=== PATIENT | female | born 1940 | race Caucasian/White ===

== ENCOUNTER → 2016-12-04 09:03 | Outpatient (CLI) | payer MEDICARE ==
[2016-12-04 10:17] LABS: ALBUMIN 3.8 g/dL (3.4-5.0); BILIRUBIN - DIRECT 0.28 mg/dL (0.00-0.30); BILIRUBIN - INDIRECT 0.64 mg/dL (0.00-1.00); BILIRUBIN - TOTAL 0.92 mg/dL (0.2-1.3)
[2016-12-05 12:15] LABS: ANA REFLEX - DIRECT Negative (Negative); ANA REFLEX - SCL-70 <0.2 AI (0.0-0.9)
== END | disposition home or self-care (01) ==
LOC: D.RT 10-27 10:00 → D.RAD 10-27 11:00 → D.LAB 10-27 11:30 → D.RT 09:03
PROVIDERS: Internal Medicine Pulmonary Disease
DX: I27.2 Other secondary pulmonary hypertension (principal)

== ENCOUNTER 2017-01-30 06:14 | Outpatient (CLI) | payer MEDICARE ==
[~2017-01-30] VITALS: Ht 154.9 cm; Wt 76.4 kg
--- NOTE | ~2017-01-30 | HEMODYNAMI ---
PATIENT:ANNE-MARIE PETERSEN MEDICAL RECORD: [id number] : 44 LOCATION:[facility] ADMISSION DATE: 01/30/17 Generatedon:01/30/201710:32 Patient name: ANNE-MARIE PETERSEN Patient #: [id number] SSN: DO B: 1940 Date of study: 01/30/2017 Page: Of Hemodynamic Procedure Report Patient Data Patient Demographics Procedure consent was obtained First Name: ANEN-MARIE Gender: Female Last Name: TRINITY : 1940 Patient #: [id number] Age: 76 year(s) Race: Unknown Additional ID: [id number] Contact details [address]: [address] [place] [address] State: [place] City: [place] Zip code: [address] Past Medical History Allergies Allergen Reaction Date Comments Reported Other allergy 01/30/2017 Codeine, Sulfa Admission Admission Data Admission Date: 01/30/2017 Admission Time: 6:14 Admit Source: Other Lab Results Lab Result Date: 01/30/2017 Lab Result Time: 7:00 Biochemistry Name Units Result Min Max BUN mg/dl 34 --(----)-* 7 18 Creatinine mg/dl 1.7 --(----)-* 0.6 1.3 CBC Name Units Result Min Max Hematocrit % 37.2 *-(----)-- 42 54 Hemoglobin g/dl 12.3 *-(----)-- 13.5 17.5 Coagulation Name Units Result Min Max INR units 1.37 --(----)-* 0.85 1.17 PT sec 16.8 --(----)-* 11.6 15 Procedure Procedure Types Cath Procedure Diagnostic Procedure PPM/ICD Permanent Pacer Generator Exg. Miscellaneous Procedures Moderate Sedation up to 30 minutes Procedure Description Procedure Date Procedure Date: 01/30/2017 Procedure Start Time: 9:57 Procedure End Time: 10:24 Procedure Staff Name Function Ar Gonzales MD Performing Physician Criselda Maier RT Scrub Yuki Jacobo RN Nurse Suman Jarvis RT Monitor Procedure Data Cath Procedure Fluoroscopy Diagnostic fluoroscopy Total fluoroscopy Time: 0.2 time: 0.2 min min Diagnostic fluoroscopy Total fluoroscopy dose: dose: 74.74 mGy 74.74 mGy Contrast Material Contrast Material Type Amount (ml) Isovue 300 0 Estimated blood loss: 5 ml Procedure Complications No complications Procedure Medications Medication Administration Route Dosage Oxygen NC 2 l/min Lidocaine 1% added to field 20 Ancef (1Gm/50ml NS) I.V.P.B 1 g Versed I.V. 1 mg Versed I.V. 1 mg Heparin Flush Bag added to field 1 bags (1000units/500ml NS) Hemodynamics Rest HGB: 12.3 (g/dl) Heart Rate: 77 (bpm) Snapshots Pre Cath Intra NCS Post Cath Vital Signs Time Heart Resp SPO2 NIBP (mmHg) Rhythm Pain Sedation Rate (ipm) (%) Status Level (bpm) 9:31:27 78 17 95 141/86(114) NSR 0 (11) 10(A) , No pain 9:35:55 109 21 95 153/100(127) NSR 0 (11) 10(A) , No pain 9:40:27 109 19 93 156/101(143) NSR 0 (11) 10(A) , No pain 9:45:02 75 17 93 156/97(117) NSR 0 (11) 10(A) , No pain 9:49:36 75 14 94 151/80(127) NSR 0 (11) 10(A) , No pain 9:54:13 79 16 96 145/72(116) NSR 0 (11) 10(A) , No pain 9:58:43 75 14 96 135/78(112) NSR 0 (11) 10(A) , No pain 10:03:10 75 15 96 138/77(114) NSR 0 (11) 9(A) , No pain 10:07:36 106 15 97 129/79(96) NSR 0 (11) 9(A) , No pain 10:12:04 101 15 96 127/72(107) NSR 0 (11) 10(A) , No pain 10:16:30 77 15 99 131/73(113) Paced 0 (11) 10(A) , No pain 10:21:01 74 14 99 129/75(102) Paced 0 (11) 10(A) , No pain Medications Time Medication Route Dose Verified Delivered Reason Notes Eff ectiveness by by 9:15:50 Ancef (1Gm/50ml I.V.P.B 1 g Ar Buffie used for NS) Janet Jacobo RN procedure MD 9:49:25 Heparin Flush added 1 Ar Ar Bag to bags Janet Gonzales MD (1000units/500ml field MUÑOZ NS) 9:49:29 Oxygen NC 2 Ar Buffie used for l/min Janet Jacobo RN procedure 9:49:38 Lidocaine 1% added 20ml Ar Ar for local to vial Janet Gonzales MD anesthetic field 9:52:41 Versed I.V. 1 mg Ar Buffie for Janet Jacobo RN sedation 10:02:13 Versed I.V. 1 mg Ar Buffie for Janet Jacobo RN sedation Procedure Log Time Note 9:05:34 Informed consent obtained and on chart 9:05:39 Admit Source: Other 9:06:40 Criselda Maier RT(R) sent for patient. Start room use. 9:06:41 Time tracking: Regular hours 9:06:44 Plan of Care:Hemodynamics will remain stable., Cardiac rhythm will remain stable., Comfort level will be maintained., Respiratory function will remain adequate., Patient/ family verbilizes understanding of procedure., Procedure tolerated without complication., Recovers from procedure without complications.. 9:07:26 H&P Date Dictated: 01/22/2017 Within 30 days and on chart., H&P Addendum completed by physician on day of procedure. (MUST COMPLETE FOR ALL OUTPATIENTS). 9:15:50 Ancef (1Gm/50ml NS) 1 g I.V.P.B was administered by Yuki Jacobo RN; used for procedure; 9:18:16 Patient received from Pre/Post Procedure Room to CCL 3 Alert and oriented. Tansferred to table in Supine position. 9:18:17 Warm blankets applied, and jenn hugger turned on for patient comfort. 9:18:17 Correct patient and procedure confirmed by team. 9:18:19 ECG and BP/O2 sat monitors applied to patient. 9:18:21 Pre-procedure instructions explained to patient. 9:18:21 Pre-op teaching completed and patient verbalized understanding. 9:18:24 Family in patients room. 9:18:26 Patient NPO since Midnight. 9:18:44 Patient allergic to Other allergyCodeine, Sulfa 9:30:00 Vital chart was started 9:30:04 Medtronic motor vehicle field representative Rich Bhatia present for procedure. 9:30:10 Rhythm: paced 9:30:12 Full Disclosure recording started 9:30:17 Is the patient allergic to Iodine/contrast media? No. 9:31:24 Patient diabetic? No. 9:31:44 Previous problem with sedation/anesthesia? Yes Dificulty waking up 9:33:00 IV started by Yuki Jacobo RN inright antecubital with a 20 gauge IV catheter with 0.9% NaCl at KVO. 9:33:04 Snore? No 9:33:05 Sleep apnea? No 9:33:06 Deviated septum? No 9:33:07 Opens mouth fully? Yes 9:33:08 Sticks out tongue? Yes 9:33:10 Airway obstruction? No ? 9:33:12 Dentures? No ? 9:33:34 IV patent on arrival in right hand, left antecubital with 0.9% NaCl at KVO. 9:34:25 Lab Result : BUN 34 mg/dl 9:34:25 Lab Result : Creatinine 1.7 mg/dl 9:34:25 Lab Result : Hemoglobin 12.3 g/dl 9:34:25 Lab Result : Hematocrit 37.2 % 9:34:25 Lab Result : PT 16.8 sec 9:34:25 Lab Result : INR 1.37 units 9:34:28 Lab results completed and on chart. 9:34:36 Left chest area was prepped with chlora-prep and draped in sterile fashion 9:34:38 Alarms reviewed by R. N. 9:34:38 Sharps counted by scrub and verified by R.N. 9:34:46 Use device set Pacemaker Set 9:34:49 Immobilizer Sling Small opened to sterile field. 9:35:26 3.0 Vicryl Single Pack [id number] opened to sterile field. 9:36:22 Baseline sample Acquired. 9:44:39 IV Extension Set opened to sterile field. 9:45:30 Physician arrived 9:45:30 --------ALL STOP TIME OUT------ 9:45:31 Final Timeout: patient, procedure, and site verified with staff and physician. All members of the team are in agreement. 9:45:34 Left chest site verified by team. 9:45:36 Physical assessment completed. ASA score P 2 - A patient with mild systemic disease as per Ar Gonzales MD. 9:45:39 Sedation plan: IV Moderate Sedation Versed, Fentanyl 9:49:25 Heparin Flush Bag (1000units/500ml NS) 1 bags added to field was administered by Ar Gonzales MD; ; 9:49:29 Oxygen 2 l/min NC was administered by Yuki Jacobo RN; used for procedure; 9:49:38 Lidocaine 1% 20ml vial added to field was administered by Ar Gonzales MD; for local anesthetic; 9:52:41 Versed 1 mg I.V. was administered by Yuki Jacobo RN; for sedation; 9:57:08 Procedure started. 10:00:29 Pre sharps counted by scrub and verified by RN: Sutures: 2 Sponges: 5 Stick needles: 0 Skin needles: 2 Blade: 1 Cautery: 1 10:00:55 Grounding pad site Right thigh. 10:00:56 Grounding pad site free from injury. 10:01:07 Lidocaine 1% to left subclavicular area by Ar Gonzales MD. 10:01:17 Incision made to left subclavicular area. 10:01:36 Generator pocket made/opened. 10:02:13 Versed 1 mg I.V. was administered by Yuki Jacobo RN; for sedation; 10:06:00 PPM Dual was removed.. 10:06:37 Medtronic Adapta PPM Dual Generator opened to sterile field. 10:06:39 High Pressure Extension Tubing (Joaquin) opened to sterile field. 10:06:52 2.0 Silk 685H opened to sterile field. 10:07:10 PPM Dual was attached to lead(s) and inserted into pocket. 10:08:28 Generator was sutured in place with 2-0 ticron. 10:10:12 Subcutaneous closure was completed with 3-0 vicryl plus. 10:12:47 Skin Closure completed with andrea. 10:13:26 Lt Chest incision was dressed with 4 x 4 and Tegaderm. 10:13:57 Lt Chest incision was dressed with 4X4 and Eye patch 10:15:31 Procedure ended.(Physican Out) 10:17:59 Fluoroscopy time 00.20 minutes. 10:18:04 Fluoroscopy dose: 74.74 mGy 10:18:04 Flurop Dose total: 74.74 10:18:07 Contrast amount:Isovue 300 0ml. 10:18:25 Post sharps counted by scrub and verified by RN: Sutures: 2 Sponges: 5 Stick needles: 0 Skin needles: 2 Blade: 1 Cautery: 1 10:19:01 Insertion/operative site no bleeding no hematoma. 10:19:14 Post Chest area:stable, soft, clean and dry 10:19:16 Post Procedure Pulses reassessed and unchanged 10:19:19 Post-procedure physical assessment completed. ASA score P 2 - A patient with mild systemic disease as per Ar Gonzales MD. 10:19:22 Post procedure rhythm: unchanged. 10:19:27 Estimated blood loss: 5 ml 10:19:28 Post procedure instruction explained to patient.Patient verbalizes understanding. 10:19:29 Patient needs reinforcement of post procedure teaching. 10:21:39 Procedure type changed to Cath procedure, Diagnostic procedure, PPM/ICD, Permanent Pacer Generator Exg., Miscellaneous Procedures, Moderate Sedation up to 30 minutes 10:22:26 Procedure and supply charges have been captured, reviewed, submitted and are correct. 10:22:29 Procedure Complication : No complications 10:24:08 Vital chart was stopped 10:24:09 See physician's report for complete and final results. 10:24:11 Report given to Pre/Post Procedure Room. 10:24:13 Patient transfered to Pre/Post Procedure Room with Stretcher. 10:24:15 Procedure ended. 10:24:15 Full Disclosure recording stopped 10:24:25 End room use (Document Last) 10:30:45 Parameters-- Generator: Mode: AAIDDDR. Lower Rate: 60bpm. Upper Rate: 120bpm. 10:31:15 Parameters--Atrial P/R Wave: 1.4-2.0mV. Current: 0mA; Threshold: 0V; Impedence: 312OHMS. 10:31:31 Parameters--Ventricular P/R Wave: 15.6mV. Current: 0mA; Threshold: .75 AT .04V; Impedence: 420OHMS. Device Usage Item Name Manufacture Quantity Catalog Hospital Part Current Minimal Lo t# / Number Charge Number Stock Stock Serial# Code Immobilizer Cardinal 1 [id number] 5 Sling Small Health 3.0 Vicryl Ethicon 1 [id number] 5 Single Pack [id number] IV Hospira 1 [id number] 5 Extension Set Medtronic Medtronic 1 [id number] 5 Adapta PPM NW [id number] Dual EX P: Generator 04-06-14 High Merit 1 [id number] [id number] 10 Pressure Medical Extension Tubing (Joaquin) 2.0 Silk Ethicon 1 [id number] 5 685H Signature Audit [place] Stage Time Signature Unsigned Intra-Procedure 01/30/2017 Suman Jarvis 10:32:08 AM RT(R) Signatures Monitor : Suman Jarvis RT Signature : Date : Time : [address] [address]
[2017-01-30] MEDS ORDERED: LANOXIN125 MCG PO (06:54)
[2017-01-30] MEDS ORDERED: NEURONTIN 300300 MG PO (06:54)
[2017-01-30] MEDS ORDERED: COUMADIN5 MG PO (06:55)
[2017-01-30] MEDS ORDERED: ISOSORBIDE MONO60 M1 PO (06:55)
[2017-01-30] MEDS ORDERED: ALDACTONE25 MG PO (06:56)
[2017-01-30] MEDS ORDERED: LASIX20 MG PO (06:56)
[2017-01-30] MEDS ORDERED: BUMEX2 MG PO (06:56)
[2017-01-30] MEDS ORDERED: K-TAB10 MEQ PO (06:57)
[2017-01-30] MEDS ORDERED: OXYCONTIN10 MG PO (06:58)
[2017-01-30] MEDS ORDERED: MIRAPEX0.25 MG PO (06:58)
[2017-01-30] MEDS ORDERED: VIBRAMYCIN 100100 MG PO (06:59)
[2017-01-30] MEDS ORDERED: ZANAFLEX4 MG PO (06:59)
[2017-01-30 07:06] LABS: HEMATOCRIT 37.2 % (36.0-48.0); HEMOGLOBIN 12.3 g/dL (12-16); MCHC 33.1 g/dL (31.0-37.0); MCV 96.9 fL (80.0-100.0); MEAN PLATELET VOLUME 9.1 fL (7.4-10.4); RBC 3.84 10x6/uL (4.00-5.40); RDW 16.4 % (11.5-14.5); WBC 7.5 10x3/uL (4.8-10.8)
[2017-01-30 07:07] VITALS: BP 132/72; Ht 154.9 cm; Wt 76.4 kg
[2017-01-30 07:13] LABS: ANION GAP 11.7 mmol/L (8-16); CALCIUM 9.5 mg/dL (8.5-10.1); CARBON DIOXIDE 28.9 mmol/L (21.0-32.0); CREATININE - SERUM 1.7 mg/dL (0.6-1.3); POTASSIUM - SERUM 3.6 mmol/L (3.5-5.1)
[2017-01-30 07:37] LABS: INR 1.37 (0.85-1.17); PROTIME 16.8 SECONDS (11.6-15.0)
[2017-01-30 07:38] LABS: APTT 37.2 SECONDS (22.8-39.4)
[2017-01-30] MEDS ORDERED: KEFLEX500 MG PO (10:40)
--- NOTE | 2017-01-30 10:50 | NUR ---
2L NC, NO RESP DISTRESS NOTED. LEFT SHOULDER DRESSING CDI, NO BLEEDING NOTED. VSS. SHEEP SORTER SHOWS AFIB AT RATE OF 105. SANDWICH TRAY AND DRINK GIVEN. NO C/O NAUSEA. WILL CONTINUE TO MONITOR.
--- NOTE | 2017-01-30 11:05 | NUR ---
ROOM AIR, NO RESP DISTRESS. LEFT SHOULDER DRSG CDI, NO BLEEDING NOTED. VSS. NO C/O PAIN OR NAUSEA. CALL LIGHT WITHIN REACH.
--- NOTE | 2017-01-30 11:40 | NUR ---
LEFT AC AND RIGHT HAND PIV D/C'D WITH CATHETERS INTACT, BAND AID TO SITES. UP TO BEDSIDE TO GET DRESSED.
--- NOTE | 2017-01-30 11:55 | NUR ---
UP TO RESTROOM TO VOID.
--- NOTE | 2017-01-30 12:00 | NUR ---
DISCHARGE INSTRUCTIONS GIVEN, VERBALIZED UNDERSTANDING.
--- NOTE | 2017-01-30 12:09 | NUR ---
TAKEN OUT VIA WHEELCHAIR BY [facility]. LEFT FACILITY WITH FAMILY MEMBER AND ALL PERSONAL BELONGINGS.
== END 2017-01-30 12:09 | disposition home or self-care (01) ==
LOC: D.CATH 06:14
PROVIDERS: Internal Medicine Cardiovascular Disease
DX: Z45.010 Encounter for checking and testing of cardiac pacemaker pulse generator [battery] (principal); Z01.812 Encounter for preprocedural laboratory examination